=== PATIENT | female | born 1955 | race Caucasian/White ===

== ENCOUNTER 2019-12-16 04:54 | Emergency (ER) | payer SELFPAY ==
[~2019-12-16] VITALS: Ht 175.3 cm; Wt 60.0 kg
--- NOTE | 2019-12-16 05:12 | NUR ---
THIS IS A 64 YO FEMALE BIB [facility] FOR "PATIENT WAS FOUND AT [facility] OFF OF [facility], FLAGGED DOWN DOCUMENT PROCESSING SPECIALIST AND SPEAKING IN CONFUSED CONVERSATION WIT HTNAGENTIAL SPEECH PATTERNS AND FLIGHT OF IDEAS. SHE WAS CONFUSED HOW SHE GOT TO THE [facility]". PER [facility] BGL 113. WHEN ASKING PATIENT QUESTIONS, PATIENT ABLE TO ANSWER SOME QUESTIONS APPREOPRIATELY BUT NOT ANSWER OTHERS AND CHANGE TOPICS. PATIENT STATES "I DROVE TO THE [facility]", ABLE TO PROVIDE ADDRESS THAT MATCHES IDENTIFICATION. PATIENT POOR HISTORIAN, DENIES ANY MEDICAL HX, WHEN ASKED ABOUT ALLERGIES, STATES "I DONT THINK SO", ALERT AND ORIENTED TO PERSON AND YEAR, UNABLE TO ANSWER DATE OR SITUATION. PATIENT DISTRACTED AND LOOKING AROUND ROOM WITH INAPPROPRIATE SPEECH PATTERNS. NAGATIVE STROKE SCALE, ABLE TO FOLLOW COMMANDS. DENIES NEEDS AT THIS TIME, CALL LIGHT IN REACH.
--- NOTE | 2019-12-16 05:37 | NUR ---
LABS DRAWN. PATIENT EDUCATED THAT WE NEED URINE SAMPLE, PATIENT STATES SHE IS UNABLE TO GO AT THIS TIME. EDUCATED PATIENT TO USE CALL LIGHT WHEN HAVE TO PEE. GIVEN WATER.
[2019-12-16 05:50] LABS: BASOPHILS # (AUTO) 0.02 x10^3/uL (0-0.1); BASOPHILS % (AUTO) 0 % (0-1); EOSINOPHILS # (AUTO) 0.07 x10^3/uL (0-0.4); EOSINOPHILS % (AUTO) 1 % (1-7); LYMPHOCYTES # (AUTO) 1.36 x10^3/uL (1-3.4); LYMPHOCYTES % (AUTO) 18 % (22-44); MD NO; MEAN CORPUSCULAR HEMOGLOBIN 29.5 pg (27.0-34.8); MEAN CORPUSCULAR HGB CONC 33.1 g/dL (32.4-35.8); MEAN CORPUSCULAR VOLUME 89.3 fL (80-100); MEAN PLATELET VOLUME 7.3 fL (7.4-10.4); MONOCYTES # (AUTO) 0.79 x10^3/uL (0.2-0.8); MONOCYTES % (AUTO) 11 % (2-9); NEUTROPHILS # (AUTO) 5.19 x10^3/uL (1.8-6.8); NEUTROPHILS % (AUTO) 70 % (42-75); PLATELET COUNT 298 x10^3/uL (130-400); RED BLOOD COUNT 4.62 x10^6/uL (3.82-5.3); RED CELL DISTRIBUTION WIDTH 13.2 % (9.6-15.2)
--- NOTE | 2019-12-16 05:54 | NUR ---
PATIENT TO CT
[2019-12-16 05:58] LABS: ALBUMIN 4.1 g/dL (3.4-5.0); ANION GAP 7 mmol/L (5-15); CALCIUM 9.1 mg/dL (8.5-10.1); CHLORIDE 107 mmol/L (98-107)
[2019-12-16 06:00] LABS: SALICYLATE LEVEL < 1.7 mg/dL (2.8-20.0)
[2019-12-16 06:02] LABS: ALANINE AMINOTRANSFERASE 34 U/L (12-78); ALKALINE PHOSPHATASE 70 U/L (45-117); CREATININE 0.55 mg/dL (0.55-1.02)
--- NOTE | 2019-12-16 06:43 | NUR ---
PATIENT RESTING ON GURNEY, RESPIRATIONS EVEN AND UNLABORED, VSS, NAD, CALL LIGHT IN REACH. EDUCATED PATIENT ON NEED FOR URINE.
--- NOTE | 2019-12-16 07:00 | NUR ---
REPORT TO ANGIE PALMA. PLAN OF CARE DISCUSSED.
--- NOTE | 2019-12-16 07:04 | NUR ---
PT GIVEN GLASS OF WATER, EDUACATED AGAIN ON NEED FOR UA. ER PROVIDER UPDATED
--- NOTE | 2019-12-16 07:53 | NUR ---
PT ASSISTED TO BR WITH CGA. PT STEADY ON FEET. PT PROVIDED UDS/UA, SENT TO LAB, PT BACK TO BED AWAITING PSYCH CONSULT
[2019-12-16 07:56] LABS: MICROSCOPIC NOT IND
[2019-12-16 08:02] LABS: CULTURE INDICATED? NO
[2019-12-16 08:08] LABS: AMPHETAMINE SCREEN, URINE Negative (Negative); BARBITURATE SCREEN, URINE Negative (Negative); BENZODIAZEPINE SCREEN, URINE Negative (Negative); CANNABINOID SCREEN, URINE Positive (Negative); COCAINE SCREEN, URINE Negative (Negative); METHADONE SCREEN, URINE Negative (Negative); OPIATE SCREEN, URINE Negative (Negative)
--- NOTE | 2019-12-16 08:33 | NUR ---
VICKI RN: [place] [facility] [place]
--- NOTE | 2019-12-16 09:01 | NUR ---
PT RESTING ON GURDRE AT THIS TIME, VSS, NAD NOTED
--- NOTE | 2019-12-16 09:50 | NUR ---
BREAK RN: PT REPORT RECEIVED FROM ANGIE PALMA. PT CARE TO BE ASSUMED. PT CURRENTLY HAVING SOC CONSULT VIA TELEMONITOR.
--- NOTE | 2019-12-16 09:52 | NUR ---
REPORT GIVEN TO HOLDEN ARNETT
--- NOTE | 2019-12-16 11:08 | NUR ---
THROUGHPUT RN: JUSTYNA SIMON REQUESTING SW COME SPEAK W/ PT. PRAVIN WESTON NOTIFIED.
--- NOTE | 2019-12-16 11:46 | NUR ---
PT RESTING ON GUCARLOS A, VSS, NAD NOTED. AWIATING SW TO EVAL PT
--- NOTE | 2019-12-16 11:47 | NUR ---
PT REPORT TO ANGIE PALMA. PT CARE TRANSFERRED.
--- NOTE | 2019-12-16 12:10 | NUR ---
TASK RN: PT MENTAL HEALTH PACKET FAXED [facility]. PT IS SELF PAY, [facility] INCLUDED IN FAX. MENTAL HEALTH CRISIS PACKET PLACED IN YELLOW SLEEVE.
--- NOTE | 2019-12-16 12:30 | NUR ---
PER ERMD, PT TO BE LEGAL HOLD. COMPUTER REPAIR TECHNICIAN MADE AWARE, PT TO BE MOVED TO ER RM 3. REPORT TO CHARLES ADAMS
--- NOTE | 2019-12-16 12:45 | NUR ---
PT MOVED TO ROOM 3, RPT REC'D FROM ANGIE PALMA. PT UNDRESSED AND BELONGINGS PLACED IN BAGS X 2, LABELED AND SECURED IN ED LOCKER. PT PROVIDED WITH SI MEAL TRAY. ROOM SECURED, AND SITTER AT DOORWAY WITH PT IN VIEW.
--- NOTE | 2019-12-16 13:13 | NUR ---
THROUGHPUT RN: PT IS SELF PAY. PACKET FAXED TO [facility].
--- NOTE | 2019-12-16 16:05 | NUR ---
Jose Raul denied patient as patient has no insurance.
--- NOTE | 2019-12-16 17:21 | NUR ---
SUICIDE MEAL TRAY PROVIDED AND SET UP FOR PT. PT DOES NOT ENGAGE THIS RN IN CONVERSATION DESPITE MULTIPLE ATTEMPTS. PT SEEN BY [facility] TOOL MAINTENANCE TECHNICIAN AND LEGAL HOLD WILL CONTINUE. I DISCUSSED WITH TOOL MAINTENANCE TECHNICIANJERZY THAT [facility] PULP MIXER, ODETTE HAD MADE CONTACT WITH A BANK THAT MANAGES A LEGAL TRUST AND ALSO HAD CONTACTED A SISTER. PER ODETTE THE SISTER WAS GOING TO CONTACT THE PTS DAUGHTER AND INSTRUCT HER TO CONTACT ODETTE.
--- NOTE | 2019-12-16 17:23 | NUR ---
HOPITAL BED ORDERED.
--- NOTE | 2019-12-16 18:45 | NUR ---
LATE ENTRY , PT OOB AND AMBULATED TO BATHROOM. DRY UNDERWEAR PROVIDED. PT VOIDED AND RTD TO ROOM W/O INCIDENT. PT ON HOSPITAL BED FOR COMFORT. SITTER AT DOORWAY WITH PT IN VIEW. PT CALL LIGHT/TV REMOTE W/I REACH.
--- NOTE | 2019-12-16 19:15 | NUR ---
THIS RN AND JOHANNE ADAMS ASSUMING CARE OF PT. FROM ANGIE SOTO. PT. RESTING ON HOSPITAL BED WITH NO DISTRESS NOTED. ROOM IS SECURED. SITTER IN FATIMA. PT. HAS MEAL TRAY AT BS; EATING AT THIS TIME.
--- NOTE | 2019-12-16 20:15 | NUR ---
PT. HAS A FRINED AT THAT ARRIVED AT THIS TIME. DISCUSSED LIMITATIONS OF VISITORS WITH FRIENED.
--- NOTE | 2019-12-16 22:41 | NUR ---
PT. UP TO BATHROOM WITH STEDY GAIT. PT. BACK TO ROOM. DENIES NEEDS.
--- NOTE | 2019-12-17 00:35 | NUR ---
PT. SITTING UP ON BED CONTINUALLY RUNNING FINGERS THROUGH HER HAIR. PT. WITH ODD MANNERISM'S AND BEHAVIORS. PT. WILL NOT SPEAK TO THIS RN; DENIES NEEDS WHEN ASKED BY SITTER. SITTER REMAINS OUTSIDE OF DOORWAY. ROOM REMAINS SECURED.
[2019-12-17 01:33] VITALS: BP 133/72
--- NOTE | 2019-12-17 01:41 | NUR ---
AFTER REVIEWING TELEPSYCH REPORT FOR THIS PT; NOTED THAT MED RECOMMENDATIONS WERE MADE; NO MEDS HAD BEEN ORDERED. DISCUSSED WITH DR. GÓMEZ. MED ORDERS PLACED WITH HIS OK PER WRITTEN TELEPSYCH MD ORDERS. PT. TO BE MEDICATED.
--- NOTE | 2019-12-17 01:45 | NUR ---
New medication orders received. Pt is currently sleeping, will medicate when conscious.
[2019-12-17] MEDS ORDERED: LORazepam 1MG TABLET PO ONE (02:00)
[2019-12-17] MEDS ORDERED: LORazepam 1MG TABLET PO PRN (02:00)
[2019-12-17] MEDS ORDERED: OLANZAPINE 5 MG TABLET PO ONE (02:00)
[2019-12-17] MEDS ORDERED: LORazepam 1MG TABLET ONE (02:15)
[2019-12-17] MEDS ORDERED: OLANZAPINE 5 MG TABLET ONE ×2 (02:16→09:17)
--- NOTE | 2019-12-17 02:22 | NUR ---
Pt given oral Ativan and Zyprexa as she was more alert and sitting up in bed.
--- NOTE | 2019-12-17 03:28 | NUR ---
Pt now sleeping after oral meds.
--- NOTE | 2019-12-17 07:22 | NUR ---
David Amezquita denied patient as patient has no insurance.
--- NOTE | 2019-12-17 08:59 | NUR ---
BREAK RN: PT SLEEPING CALMLY, NAD WITH EQUAL CHEST RISE/FALL, NO NEEDS AT THIS TIME, PT REMAINS IN SAFE ENVIRONMENT, SITTER IN VIEW.
[2019-12-17] MEDS ORDERED: OLANZAPINE 5 MG TABLET PO SCH (09:00)
--- NOTE | 2019-12-17 09:36 | NUR ---
THROUGHPUT RN: SANTOS FROM [facility] CALLED AND ASKED FOR UPDATE ON PT. STATES HE WILL CALL BACK LATER TO LET THIS RN KNOW IF THERE ARE BEDS AVAILABLE TODAY.
--- NOTE | 2019-12-17 10:28 | NUR ---
THROUGHPUT RN: CECE GRAHAM AT [facility] DR. GALARZA WILL ACCEPT PT TODAY. SANTOS REQUESTING PT AT 1200. REPORT BEING GIVEN NOW. TRANSPORT TO BE SCHEDULED.
--- NOTE | 2019-12-17 10:30 | NUR ---
report to [facility]
--- NOTE | 2019-12-17 10:49 | NUR ---
THROUGHPUT RN: KATINA STATES THEY WILL PICK PT UP AT 1200.
== END 2019-12-17 12:19 ==
LOC: ED 08:38
DX: R41.82 Altered mental status, unspecified (principal)
CPT/HCPCS: 36415; 70450; 80053; 80307; 81003; 85025; 93005; 99285